=== PATIENT | male | born 1975 | race Two or more races ===

== ENCOUNTER 2017-12-29 10:51 | Day surgery (SDC) | payer BC ==
[~2017-12-29] VITALS: Ht 165.1 cm; Wt 82.5 kg
[~2017-12-29 10:51] MED LIST: ASPIRIN81 M2 PO; DICLOFENAC POTA50 MG PO; ERGOCALCIF50000 UNIT PO; VITAMIN D32000 UNI1 PO; ZANAFLEX4 M1 PO
[2017-12-29 11:19] VITALS: BP 131/81
[2017-12-29 11:35] VITALS: BP 131/81
[2017-12-29] MEDS ORDERED: ONDANSETRON HCL8 MG PO (13:59)
[2017-12-29] MEDS ORDERED: COLACE100 MG PO (13:59)
[2017-12-29] MEDS ORDERED: DILAUDID4 MG PO (13:59)
[2017-12-29 15:36] VITALS: BP 166/93
[2017-12-29 16:36] VITALS: BP 130/83
[2017-12-29 18:43] VITALS: BP 151/93
== END 2017-12-29 18:43 | disposition home or self-care (01) ==
LOC: SDC 10:51
DX: K42.9 Umbilical hernia without obstruction or gangrene (principal); K66.0 Peritoneal adhesions (postprocedural) (postinfection); K21.9 Gastro-esophageal reflux disease without esophagitis; Z79.82 Long term (current) use of aspirin
CPT/HCPCS: C1781; J0690; J1100; J1170; J2250; J2270; J2405; J2710; J3010